=== PATIENT | female | born 1970 | race Caucasian/White ===

== ENCOUNTER → 2019-12-12 10:12 | Outpatient (BNVA) | payer MEDICARE, MEDICAID, SELFPAY | PROVIDERS: Family Provider Nurse Practitioner; PCP Nurse Practitioner; Visit Provider Psychiatry & Neurology Psychiatry | DX: F43.12 Post-traumatic stress disorder, chronic (principal); F33.42 Major depressive disorder, recurrent, in full remission; F17.219 Nicotine dependence, cigarettes, with unspecified nicotine-induced disorders | CPT/HCPCS: 99213 ==

== ENCOUNTER → 2019-12-15 16:23 | Outpatient (BNVA) | payer MEDICARE, MEDICAID, SELFPAY | PROVIDERS: Family Provider Nurse Practitioner; PCP Nurse Practitioner; Visit Provider Nurse Practitioner | DX: M76.61 Achilles tendinitis, right leg (principal); M25.571 Pain in right ankle and joints of right foot | CPT/HCPCS: 73610 ==

== ENCOUNTER → 2020-03-05 07:24 | Outpatient (BNVA) | payer MEDICARE, MEDICAID, SELFPAY | PROVIDERS: Family Provider Nurse Practitioner; PCP Nurse Practitioner; Visit Provider Psychiatry & Neurology Psychiatry | DX: F33.42 Major depressive disorder, recurrent, in full remission (principal); F17.219 Nicotine dependence, cigarettes, with unspecified nicotine-induced disorders; F43.12 Post-traumatic stress disorder, chronic | CPT/HCPCS: 99214 ==

== ENCOUNTER → 2020-03-19 07:35 | Outpatient (BNVA) | payer MEDICARE, MEDICAID, SELFPAY | PROVIDERS: Family Provider Nurse Practitioner; PCP Nurse Practitioner; Visit Provider Psychiatry & Neurology Psychiatry | DX: F33.42 Major depressive disorder, recurrent, in full remission (principal); F17.219 Nicotine dependence, cigarettes, with unspecified nicotine-induced disorders | CPT/HCPCS: 99213 ==

== ENCOUNTER → 2020-04-02 07:29 | Outpatient (BNVA) | payer MEDICARE, MEDICAID, SELFPAY | PROVIDERS: Family Provider Nurse Practitioner; PCP Nurse Practitioner; Visit Provider Psychiatry & Neurology Psychiatry | DX: F17.219 Nicotine dependence, cigarettes, with unspecified nicotine-induced disorders (principal); F33.42 Major depressive disorder, recurrent, in full remission | CPT/HCPCS: 99213 ==

== ENCOUNTER 2020-04-24 06:00 | Outpatient (RCR) | payer MEDICARE, MEDICAID, SELFPAY | END 2020-05-01 23:59 | disposition home or self-care (01) | LOC: SPT 06:00 | PROVIDERS: PCP Nurse Practitioner; Referring Provider Podiatrist Foot & Ankle Surgery; Visit Provider Podiatrist Foot & Ankle Surgery | DX: M76.61 Achilles tendinitis, right leg (principal) | CPT/HCPCS: 97035; 97110; 97140; 97162 ==

== ENCOUNTER 2020-05-02 06:00 | Outpatient (RCR) | payer MEDICARE, MEDICAID, SELFPAY | END 2020-06-01 23:59 | disposition home or self-care (01) | LOC: SPT 06:00 | PROVIDERS: PCP Nurse Practitioner; Referring Provider Podiatrist Foot & Ankle Surgery; Visit Provider Podiatrist Foot & Ankle Surgery | DX: F33.42 Major depressive disorder, recurrent, in full remission (principal); F17.210 Nicotine dependence, cigarettes, uncomplicated; M76.61 Achilles tendinitis, right leg | CPT/HCPCS: 99214 ==

== ENCOUNTER → 2020-05-30 14:10 | Outpatient (BNVA) | payer MEDICARE, MEDICAID, SELFPAY | PROVIDERS: PCP Nurse Practitioner; Visit Provider Nurse Practitioner | DX: N39.0 Urinary tract infection, site not specified (principal); I10 Essential (primary) hypertension; E55.9 Vitamin D deficiency, unspecified; K21.9 Gastro-esophageal reflux disease without esophagitis | CPT/HCPCS: 80053; 80061; 81000; 82306; 84443 ==

== ENCOUNTER → 2020-07-02 11:27 | Outpatient (BNVA) | payer MEDICARE, MEDICAID, SELFPAY | PROVIDERS: PCP Nurse Practitioner; Visit Provider Psychiatry & Neurology Psychiatry | DX: F33.42 Major depressive disorder, recurrent, in full remission (principal); F17.219 Nicotine dependence, cigarettes, with unspecified nicotine-induced disorders | CPT/HCPCS: 99212 ==

== ENCOUNTER → 2020-08-06 08:06 | Outpatient (BNVA) | payer MEDICARE, MEDICAID, SELFPAY | PROVIDERS: PCP Nurse Practitioner; Visit Provider Psychiatry & Neurology Psychiatry | DX: F33.42 Major depressive disorder, recurrent, in full remission (principal); F17.219 Nicotine dependence, cigarettes, with unspecified nicotine-induced disorders; G47.00 Insomnia, unspecified; F41.1 Generalized anxiety disorder | CPT/HCPCS: 99214 ==

== ENCOUNTER → 2020-09-03 07:29 | Outpatient (BNVA) | payer MEDICARE, MEDICAID, SELFPAY | PROVIDERS: PCP Nurse Practitioner; Visit Provider Psychiatry & Neurology Psychiatry | DX: F33.42 Major depressive disorder, recurrent, in full remission (principal); F17.219 Nicotine dependence, cigarettes, with unspecified nicotine-induced disorders | CPT/HCPCS: 99213 ==

== ENCOUNTER → 2020-10-16 08:15 | Outpatient (BNVA) | payer MEDICARE, MEDICAID, SELFPAY | PROVIDERS: PCP Nurse Practitioner; Visit Provider Psychiatry & Neurology Psychiatry | DX: F33.42 Major depressive disorder, recurrent, in full remission (principal); F17.219 Nicotine dependence, cigarettes, with unspecified nicotine-induced disorders | CPT/HCPCS: 99214 ==

== ENCOUNTER → 2020-12-06 15:59 | Outpatient (BNVA) | payer MEDICARE, MEDICAID, SELFPAY | PROVIDERS: PCP Nurse Practitioner; Visit Provider Nurse Practitioner | DX: N61.0 Mastitis without abscess (principal); J44.1 Chronic obstructive pulmonary disease with (acute) exacerbation; I10 Essential (primary) hypertension; K21.9 Gastro-esophageal reflux disease without esophagitis | CPT/HCPCS: 80053; 80061; 81000; 85025 ==

== ENCOUNTER → 2020-12-10 08:28 | Outpatient (BNVA) | payer MEDICARE, MEDICAID, SELFPAY | PROVIDERS: PCP Nurse Practitioner; Visit Provider Psychiatry & Neurology Psychiatry | DX: F33.42 Major depressive disorder, recurrent, in full remission (principal); F17.219 Nicotine dependence, cigarettes, with unspecified nicotine-induced disorders | CPT/HCPCS: 99214 ==

== ENCOUNTER → 2021-04-30 11:53 | Outpatient (BNVA) | payer MEDICARE, MEDICAID, SELFPAY | PROVIDERS: PCP Nurse Practitioner; Visit Provider Nurse Practitioner | DX: E55.9 Vitamin D deficiency, unspecified (principal); J44.1 Chronic obstructive pulmonary disease with (acute) exacerbation; I10 Essential (primary) hypertension; R13.10 Dysphagia, unspecified; E78.2 Mixed hyperlipidemia | CPT/HCPCS: 80053; 80061; 82306; 82607; 84443; 85025 ==

== ENCOUNTER 2021-05-13 08:02 | Outpatient (CLI) | payer MEDICARE, MEDICAID, SELFPAY ==
--- NOTE | 2021-05-13 08:30 | FL_ITS ---
WS: [id number] MODIFIED BARIUM SWALLOW TECHNIQUE: Modified barium swallow with speech therapy using multiple consistencies. FLUOROSCOPY TIME: 1.5 minutes. CLINICAL INFORMATION: R13.10 - Dysphagia, unspecified COMPARISON: None. FINDINGS: Multiple consistencies utilized. Penetration with nectar consistencies and thin liquids. Pooling in t he vallecula which clears with additional swallows. No keshia aspiration. No difficulties with barium tablet. FL/FL barium swallow modifd 40277 IMPRESSION: Penetration with nectar consistencies and thin liquids.
== END 2021-05-13 08:03 | disposition home or self-care (01) ==
LOC: RAD 08:08
PROVIDERS: PCP Nurse Practitioner; Visit Provider Nurse Practitioner
DX: R13.10 Dysphagia, unspecified (principal)
CPT/HCPCS: 74230; 92611

== ENCOUNTER 2021-06-14 06:00 | Outpatient (RCR) | payer MEDICARE, MEDICAID, SELFPAY | END 2021-07-02 23:59 | disposition home or self-care (01) | LOC: SST 06:00 | PROVIDERS: PCP Nurse Practitioner; Referring Provider Nurse Practitioner; Visit Provider Nurse Practitioner | DX: R13.10 Dysphagia, unspecified (principal) | CPT/HCPCS: 92526; 92610 ==

== ENCOUNTER → 2021-06-17 07:17 | Outpatient (BNVA) | payer MEDICARE, MEDICAID, SELFPAY | PROVIDERS: PCP Nurse Practitioner; Visit Provider Psychiatry & Neurology Psychiatry | DX: F33.42 Major depressive disorder, recurrent, in full remission (principal); F17.219 Nicotine dependence, cigarettes, with unspecified nicotine-induced disorders; F41.0 Panic disorder [episodic paroxysmal anxiety] | CPT/HCPCS: 99214 ==

== ENCOUNTER → 2021-07-01 10:13 | Outpatient (BNVA) | payer MEDICARE, MEDICAID, SELFPAY | PROVIDERS: PCP Nurse Practitioner; Visit Provider Nurse Practitioner | DX: I10 Essential (primary) hypertension (principal); E78.2 Mixed hyperlipidemia; J44.1 Chronic obstructive pulmonary disease with (acute) exacerbation; E55.9 Vitamin D deficiency, unspecified | CPT/HCPCS: 80053; 80061; 81000; 82306; 82607; 84443; 85025; 85651; 86140 ==

== ENCOUNTER → 2021-07-15 07:18 | Outpatient (BNVA) | payer MEDICARE, MEDICAID, SELFPAY | PROVIDERS: PCP Nurse Practitioner; Visit Provider Psychiatry & Neurology Psychiatry | DX: F33.42 Major depressive disorder, recurrent, in full remission (principal); F41.0 Panic disorder [episodic paroxysmal anxiety]; F17.219 Nicotine dependence, cigarettes, with unspecified nicotine-induced disorders | CPT/HCPCS: 99214 ==

== ENCOUNTER → 2023-07-01 10:38 | Outpatient (BNVA) | payer MEDICARE, MEDICAID, SELFPAY | PROVIDERS: PCP Nurse Practitioner; Visit Provider Nurse Practitioner | DX: E55.9 Vitamin D deficiency, unspecified (principal); E78.2 Mixed hyperlipidemia; I10 Essential (primary) hypertension | CPT/HCPCS: 80053; 80061; 82306; 82607; 84443; 85025 ==

== ENCOUNTER 2023-07-17 10:52 | Outpatient (CLI) | payer MEDICARE, MEDICAID, SELFPAY ==
--- NOTE | 2023-07-17 11:06 | XR_ITS ---
WS: [id number] Exam: XR chest 2V* [id number] Date/Time of Exam: 07/17/2023 11:08 AM Reason For Exam: J44.1 - Chronic obstructive pulmonary disease with (acute... Comparison 12/13/2018. Chronic interstitial change with honeycombing noted throughout both lungs. No consolidated infiltrate s. Cardiomediastinal silhouette is unremarkable. No pleural effusions. Bony structures are intact. IMPRESSION: 1. Chronic interstitial change with honeycombing. 2. No acute cardiopulmonary finding.
--- NOTE | 2023-07-17 11:45 | USCV_ITS ---
Zoila Christine Age: 53 Gender: F : 1970 Exam Date: 07/17/2023 11:25 Ordering Phys: Chuck Tsang Technologist: CT Exam Location: [facility] [place]_ Indication: 4th toe removed Risk Factors: Previous Vascular Surgery: RIGHT LEFT BP: 128.0 / 75.00 BP: / 0 Waveform Velocity (cm/s) Velocity (cm/s) Waveform Monophasic 67.2 Iliac Prox Monophasic 48.7 Iliac Mid Monophasic 37.1 Iliac Distal Monophasic 34.3 ENERGY ECONOMIST Monophasic 49.7 SFA Prox Monophasic 43.8 SFA Mid Monophasic 29.8 SFA Dist Monophasic 28.6 POP Monophasic 21.2 MEDICAL OFFICE SUPERVISOR Monophasic 16.6 DPA 0.7 ELAINE FINDINGS Monophasic and continuous Doppler waveforms in the arteries on the right lower extremity. Low amplitude waveforms. Resting ELAINE 0.7 CONCLUSIONS 1. Abnormal resting ELAINE of 0.7. 2. Abnormal Doppler waveforms The above features may suggest inflow disease with possible collateral filling. Consider abdominal aortic CTA with runoff to better evaluate the inflow vessels. Dr Dano Pires MD [facility] (Electronically Signed) Final Date: 17 July 2023 20:56 S
== END 2023-07-17 10:53 | disposition home or self-care (01) ==
PROVIDERS: PCP Nurse Practitioner; Visit Provider Nurse Practitioner
DX: J44.1 Chronic obstructive pulmonary disease with (acute) exacerbation (principal); Z89.421 Acquired absence of other right toe(s)
CPT/HCPCS: 71046; 93926

== ENCOUNTER 2023-08-07 08:51 | Outpatient (CLI) | payer MEDICARE, MEDICAID, SELFPAY ==
--- NOTE | 2023-08-07 09:00 | CTR_ITS ---
PROCEDURE INFORMATION: Exam: CTA Abdominal Aorta and Bilateral Lower Extremities (Run-off) With Contrast Exam date and time: 08/07/2023 9:20 AM Age: 53 years old Clinical indication: Condition or disease; Other: Acute embolism and thrombosis; Prior surgery; Surgery date: 6+ months; Surgery type: Stents, , hyst, 4th digit on RT foot; Additional info: I82.419 - acute embolism and thrombosis of unspecified fe. . . TECHNIQUE: Imaging protocol: Computed tomographic angiography of the of the abdominal aorta, pelvis and bilateral lower extremities with contrast. 3D rendering (Not supervised by radiologist): MIP and/or 3D reconstructed images were created by the technologist. Radiation optimization: All CT scans at this facility use at least one of these dose optimization techniques: automated exposure control; mA and/or kV adjustment per patient size (includes targeted exams where dose is matched to clinical indication); or iterative reconstruction. Contrast material: OMNI 350; Contrast volume: 150 ml; Contrast route: INTRAVENOUS (IV); REPORTING DATA: Count of CT and Cardiac NM exams in prior 12 months: This patient has received 0 known CTs and 0 known cardiac nuclear medicine studies in the 12 months prior to the current study. COMPARISON: CR XR abdomen 1V* [id number] 02/11/2017 9:07 AM RADIATION DOSE METRICS: Total DLP (mGy-cm): 1262.22 FINDINGS: Aorta: No abdominal aortic aneurysm. There are [id number] atherosclerotic changes of the abdominal aorta. Celiac trunk and mesenteric arteries: There is a 7 mm long segment of nonvisualized opacification of the origin of the celiac artery. This is best seen on series 5, image 108. Distal to this, there is good opacification of the distal celiac artery and branches. There is a short segment of high-grade narrowing origin of the SMA with the lumen narrowed at least 50% series 5, image 124. Renal arteries: No occlusion or significant stenosis. Right iliac arteries: There is a stent in the distal right common iliac artery and proximal half of the right external iliac artery. There is high-grade narrowing of the distal right common iliac artery within the stent measuring about 50% and severe narrowing/string sign of almost imperceptible contrast at the origin of the right internal iliac artery. The right external iliac artery including the portion within the stent is thrombosed. Right femoral/popliteal arteries: There is reconstitution of the right femoral artery from collateral vessels in the right groin. Right superficial femoral artery is widely patent although mildly diminished in caliber. Right infrapopliteal arteries: Proximal half of the right tibialis anterior and peroneal arteries are atretic with distal diminished opacification/decreased flow but no complete thrombosis. Left iliac arteries: No occlusion or significant stenosis. Left femoral/popliteal arteries: No occlusion or significant stenosis. Left infrapopliteal arteries: No occlusion or significant stenosis. Lungs: There are moderate to severe emphysematous changes. There is diffuse interstitial and ground-glass opacity in the lungs at least partially due to atelectasis however mild CHF may be present. There is no lobar consolidation. Liver: There is a diffuse decrease in hepatic parenchymal density, consistent with fatty infiltration. Diaphragm: A small hiatal hernia is present. Gallbladder and bile ducts: Unremarkable. No calcified stones. No ductal dilation. Pancreas: The pancreas is normal. Spleen: The spleen is normal. Adrenal glands: There is multilobulated benign adenomatous enlargement of the adrenal glands. Kidneys and ureters: There is no evidence of hydronephrosis. There is no evidence of renal calcifications. There is a 2.5 cm lower pole simple cyst in the left kidney. No follow-up is necessary. Stomach and bowel: There is no evidence of intestinal perforation or obstruction. The wall of the ascending and transverse colon is thickened but collapsed. This appearance may reflect lack of distention however mild colitis cannot be excluded. Appendix: A normal appendix is identified. Urinary bladder: The bladder is normal. Reproductive: There has been a hysterectomy. Intraperitoneal space: Unremarkable. No free air. No significant fluid collection. Lymph nodes: No lymphadenopathy. Bones/joints: There are small bilateral Mendoza's cyst. No acute bony abnormality. Postoperative changes partial right 4th ray amputation right foot. Soft tissues: The right tibialis posterior artery is widely patent with good runoff to the foot. There is a fat-containing umbilical hernia. There is laxity of the pelvic floor. CT/CT angio abd aorta runof [id number] IMPRESSION: 1. There is a 7 mm long segment of nonvisualized opacification/occlusion of the origin of the celiac artery. This is best seen on series 5, image 108. Distal to this, there is good opacification of the distal celiac artery and branches. 2. There is a short segment of high-grade narrowing origin of the SMA with the lumen narrowed at least 50% series 5, image 124. 3. There is high-grade narrowing of the distal right common iliac artery within the stent measuring about 50% and severe near complete narrowing/string sign of almost imperceptible contrast at the origin of the right internal iliac artery. The right external iliac artery including the portion within the stent is thrombosed. 4. The right tibialis posterior artery is widely patent with good runoff to the foot. Proximal half of the right tibialis anterior and peroneal arteries are atretic with distal diminished opacification/decreased flow but no complete thrombosis. 5. The wall of the ascending and transverse colon is thickened but collapsed. This appearance may reflect lack of distention however mild colitis cannot be excluded. 6. There is diffuse interstitial and ground-glass opacity in the lungs at least partially due to atelectasis however mild CHF may be present. Moderate to severe emphysema.
[2023-08-07] MEDS: iohexol 350 mg/mL 500 mL Btl (per mL) IV (09:10)
== END 2023-08-07 08:52 | disposition home or self-care (01) ==
LOC: RAD 08:55
PROVIDERS: PCP Nurse Practitioner; Visit Provider Nurse Practitioner
DX: I82.419 Acute embolism and thrombosis of unspecified femoral vein (principal)
CPT/HCPCS: 75635; Q9967

== ENCOUNTER → 2023-08-18 13:42 | Outpatient (BNVA) | payer MEDICARE, MEDICAID, SELFPAY | PROVIDERS: PCP Nurse Practitioner; Referring Provider Nurse Practitioner; Visit Provider Thoracic Surgery (Cardiothoracic Vascular Surgery) | DX: I74.5 Embolism and thrombosis of iliac artery (principal) | CPT/HCPCS: 99203 ==

== ENCOUNTER → 2023-10-01 10:43 | Outpatient (BNVA) | payer MEDICARE, MEDICAID, SELFPAY | PROVIDERS: PCP Nurse Practitioner; Visit Provider Orthopaedic Surgery | DX: M54.9 Dorsalgia, unspecified; M48.062 Spinal stenosis, lumbar region with neurogenic claudication | CPT/HCPCS: 72100; 99204 ==

== ENCOUNTER 2023-10-09 09:38 | Observation (INO) | payer MEDICARE, MEDICAID, SELFPAY ==
--- NOTE | 2023-10-09 07:30 | XACV_ITS ---
Ht: 157 cm Wt: 83 kg BSA: 1.95 m2 Any Known Allergies: Other Gender: Female : 1970 Exam Type: Invasive Peripheral Vascular Procedure(s): Procedure Description: Peripheral Cath Diagnostic Procedure Procedure Description: Abdominal aortic angiography Procedure Description: Lower extremities' angiography Exam Priority: Routine Abdominal Diagnostic Findings Abdominal aorta: Patent. Lower Extremity Diagnostic Findings INDICATION: 53-year-old woman with past medical history of peripheral artery disease, smoking has been referred for peripheral angiogram with possible intervention of right common/external iliac artery as she has been having lifestyle limiting claudication symptoms. She had intervention done about 1 to 2 years ago in [place] however started having leg discomfort soon after. She continues to smoke.. Right lower extremity findings: Right common iliac artery has distal stent that is occluded. Collateral blood supply is seen. Right external iliac artery is occluded. Right common femoral artery is occluded, reconstitutes just above the bifurcation. Right profunda artery is patent. Right SFA is patent. Right popliteal artery is patent. Below the knee patient has sluggish flow seen however appears to have three-vessel runoff. Left lower extremity findings: Left common iliac artery is patent. Left external iliac artery is patent. Left internal iliac artery is patent. Left common femoral artery is patent. Left profunda artery is patent. Left SFA is patent. Left popliteal artery is patent. Below the knee patient has sluggish flow however appears has three-vessel runoff to the foot. Conclusions Patient has a right lower extremity long chronic total occlusion of common iliac to common femoral artery. Occluded stent in right common iliac/external iliac artery. Reconstitution of common femoral artery right above the bifurcation of profunda artery and SFA. Given very extensive and long stenoses, will benefit from surgical intervention. Recommendations Patient to follow with Dr Clarke for surgical intervention. Hemodynamic Data Phase:Rest AO : 156.0 / 75.0 ( 99.0 ) @ 9:16:00 AM 106.0 / 71.0 ( 89.0 ) @ 9:18:00 AM 122.0 / 81.0 ( 101.0 ) @ 9:19:00 AM 123.0 / 66.0 ( 91.0 ) @ 9:24:00 AM Access Site Site: Left Femoral artery Sheath Size: 6 Fr Hemost... Method: Mynx Hemost... Success: Successful Procedure Details Findings Procedure Consent Obtained. Pre-Procedure Time Out. Identified patient by full name and date of as verbalized by the patient/guarantor. Does the consent match the physician's order: Yes. Accurate & Complete Informed Consent: Yes. Inpatient/Outpatient History & Physical on Chart: Yes. If H&P is completed, is and addenduem needed: Yes; If yes, is the addendum complete: Yes. Visualize and Verify Site with Patient/Guarantor: N/A. Relevant Radiology Images available: Yes. The risks, benefits, and alternatives of sedation and/or procedure were discussed by physician. The patient agrees to continue. Pre-op teaching completed and patient verbalized understanding. Procedure started. Physician arrived. Correct patient, site and procedure confirmed by cath team. PERRLA. Strong, equal hand physician in private practice bilaterally. Lungs clear x 5 lobes. IV Site on Arrival: 20 gauge in the left anticubital. IV Fluids: 0.9% NaCl at KVO. 0 mL infused prior to woods laborer. Pre Procedural Pulses: bilateral dorsalis pedis was Absent. Pre Procedural Pulses: bilateral posterior tibial was Doppled. Pre Procedural Pulses: bilateral radial was 2+. Oxygen started at 2liters/min via nasal canula. bilateral groins was prepped with chloroprep then draped in the usual sterile fashion. Baseline sample Acquired. HR: 93 BPM. Physician scrubbed in. Immediate Pre-Procedure Time Out. Correct Patient: Yes; Correct Procedure: Yes; Correct Site: Yes; Correct Patient Position: Yes; Correct Supplies: Yes; Dried Flammable Prep: Yes; Blood Products Available: N/A;. Lidocaine 1% infiltrated to the left groin. Arterial access obtained with micropuncture set. A 5Fr UF catheter in over wire. Abdominal aortogram performed in AP @ 10 mL/sec for a total of 30 mL. Right iliac selected and DSA performed. Catheter removed over the glide wire. Sheath injected in Left common femoral artery and runoff performed. A Left femoral angiogram was performed to determine safe placement of closure device. A Mynx was successful obtaining hemostatsis at the Left Femoral artery insertion site. Post Procedure: Pulses reassessed and unchanged. PERRLA. Strong, equal hand physician in private practice bilaterally. No VTE prophylaxis required. Medication's Wasted: Heparin = 1000 units. Total IV fluids: 42 mL. Post-op diagnosis: PAD. Complications: None. Estimated blood loss: 5mL-10mL. Responsiveness - Normal response to verbal stimuli; alert and oriented, PERRLA. Airway - Unaffected, no intervention required; spontaneous ventilation. Circulation: W/N/L, pulses unchanged. Nausea/Vomiting: No. Procedure completed. Vital chart was stopped. Patient transferred by bed to 1st floor. Procedure Medications Start: 8:54 AM Stop: 8:54 AM Medication: Versed Amount: 1 mg Route: I.V. Start: 8:54 AM Stop: 8:54 AM Medication: Fentanyl Amount: 50 mcg Route: I.V. Start: 9:11 AM Stop: 9:11 AM Medication: Versed Amount: 1 mg Route: I.V. Start: 9:12 AM Stop: 9:12 AM Medication: Fentanyl Amount: 25 mcg Route: I.V. Start: 9:17 AM Stop: 9:17 AM Medication: Fentanyl Amount: 25 mcg Route: I.V. I, the attending physician, have reviewed and verified all procedure medications. Yes, all medications given per verbal order History/Risk Factors Hypertension: Yes Dyslipidemia: Yes Peripheral Arterial Disease (PAD): Yes Obesity: No Renal Disease: No Tobacco Use: Current/Recent(w/in 1 year) Prior Interventions PCI: No CABG: No Valve Surgery: No Report Signatures Finalized by Sachin Jo MD on 10/16/2023 11:07 AM
[2023-10-09] MEDS: diphenhydrAMINE 50 mg Capsule PO (08:00)
[2023-10-09] MEDS: aspirin 325 mg Tablet PO (08:00)
[2023-10-09 08:07] LABS: Basophils # 0.1 10^3/uL (0.0-0.1); Basophils % 0.5 %; Eosinophils # 0.2 10^3/uL (0.0-0.8); Eosinophils % 1.1 %; Hematocrit 48.5 % (36-47); Lymphocytes # 3.3 10^3/uL (0.8-4.8); Lymphocytes % 22.2 %; Mean Corpuscular HGB Conc 32.6 g/dL (30-55); Mean Platelet Volume 9.8 fL (7.4-10.4); Monocytes # 0.9 10^3/uL (0.2-0.9); Monocytes % 6.1 %; Neutrophils # 10.38 10^3/uL (1.8-7.7); Neutrophils % 69.4 %; Nucleated Red Blood Cells % 0 %; Platelet Count 327 10^3/cmm (157-399); Red Blood Count 5.27 10^6/uL (3.85-5.65); Red Cell Distribution Width 14.5 % (12.1-15.1); White Blood Count 14.97 10^3/uL (3.29-11.43)
[2023-10-09 08:18] LABS: Anion Gap 17.2 (5-19); Blood Urea Nitrogen 13 mg/dL (6-20); Calcium 9.3 mg/dL (8.5-10.5); Carbon Dioxide 26 mmol/L (22-29); Chloride 100 mmol/L (98-107); Glomerular Filtration Rate 58.2 mL/min (90-130); Glucose 148 mg/dL (65-115); Osmolality Calculated 291 mOsm/kg (285-295); Potassium 4.2 mmol/L (3.5-5.1); Sodium 139 mmol/L (136-145)
[2023-10-09 08:21] VITALS: BMI 33.6
[2023-10-09 08:22] VITALS: BP 112/76; PULSE 94; RESP 18; TEMP 36.4; O2SAT 98
--- NOTE | 2023-10-09 08:46 | W.PM.OPSFHP ---
Same Day Surgery H&P Indication for Procedure/HPI DATE OF PROCEDURE: October 09, 2023 CHIEF COMPLAINT/INDICATIONFOR SURGICAL PROCEDURE: Severe claudication of right lower extremity PREOP DIAGNOSIS: Severe claudication of right lower extremity PLANNED PROCEDURE: Operation Date: 10/09/23 08:30 Proposed Procedures p perip angiogram 42305,I73.9(Not Applicable) - Sachin Jo M.D Possible percutaneous intervention 53-year-old woman with past medical history of peripheral artery disease, smoking has been referred for peripheral angiogram with possible intervention of right common/external iliac artery as she has been having lifestyle limiting claudication symptoms. She had intervention done about 1 to 2 years ago in [place] however started having leg discomfort soon after. She continues to smoke. Medications/Allergies* Allergies/Adverse Reactions Allergy/AdvReac Type Severity Reaction Status Date / Time tramadol Allergy Unknown Unknown Verified 10/09/23 08:25 Current Medications: Generic Name Dose Route Start Last Admin Trade Name Freq PRN Reason Stop Dose Admin Sodium Chloride 1,000 mls @ 50 mls/hr 10/09/23 07:30 10/09/23 08:24 Sodium Chloride 0.9% IV 10/10/23 03:29 Not Given .Q20H ONE Pertinent History/Comorbid Conditions* Medical History (Updated 10/01/23 @ 11:05 by Kirill Hernandez DO) Tachycardia Amputated great toe of right foot Vitamin D deficiency Chronic obstructive pulmonary disease with frequent exacerbations Fibromyalgia Benign essential hypertension History of head injury Cigarette nicotine dependence Depression, major, recurrent, in complete remission Post-traumatic stress disorder, chronic Surgical History (Updated 12/18/19 @ 20:24 by MARCELL Wing) History of hysterectomy Family History (Updated 11/09/19 @ 16:35 by DOT Fuller) Diabetes Chronic kidney disease (CKD) Lung disease Cancer Social History Smoking and tobacco/nicotine status: current every day tobacco/nicotine user cigarettes Packs smoked per day: 1 Years cigarettes smoked: 34 Second hand smoke exposure: Yes Alcohol intake: unknown Substance/Drug Use: unknown Adopted: No Caregiver/support person: No Lives independently: Yes Household members: significant other and family Housing: House Marital status: Single Number of children: 3 service: No Current occupational status: unemployed Pets and animals: Yes Do you think of yourself as: Straight/Heterosexual Current gender identity: Female Pertinent Exam Findings alert, oriented x 3, clear to auscultation bilaterally and regular rate & rhythm Pedal pulses are difficult to palpate bilaterally. Conscious Sedation Assessment PATIENT ASSESSED PRIOR TO SEDATION, WITH NO CHANGE NOTED: Yes AIRWAY EVAL/ANESTHESIA PLAN: normal airway, ASA III, Local Anesthesia, Risks, benefits & alternatives of sedation and/or procedure discussed and Patient agrees to continue as planned Recommendations Surgery/Procedure today (Peripheral angiogram with possible intervention.) Coding Level of Care Code Acute Code for [facility] [employer] [facility]
--- NOTE | 2023-10-09 10:27 | PC.NURSE ---
Patient arrived from seed laboratory assistant via bed at 0945. Patient has minx closure device in left femoral. Site looks clean/dry/intact. No hematoma or oozing present. Patient is aware of activity restrictions. Nurse will continue to monitor patient.
[2023-10-09 13:21] VITALS: BP 112/76; PULSE 94; RESP 18; TEMP 36.4; O2SAT 98
[2023-10-09 15:18] VITALS: BP 112/76; PULSE 94; RESP 18; TEMP 36.4; O2SAT 98
--- NOTE | 2023-10-09 15:19 | PC.NURSE ---
Discharge Note Patient discharged to home via POV accompanied by Aunt. Discharge instructions reviewed with patient and/or sales representative printing paper. Mobile pharmacy medications and/or prescriptions provided. Belongings/home medications returned.
== END 2023-10-09 15:19 | disposition home or self-care (01) ==
LOC: CSU 09:40
PROVIDERS: Admitting Provider Internal Medicine; PCP Nurse Practitioner; Visit Provider Internal Medicine
DX: I74.5 Embolism and thrombosis of iliac artery (principal); I70.92 Chronic total occlusion of artery of the extremities; Z89.411 Acquired absence of right great toe; J44.9 Chronic obstructive pulmonary disease, unspecified; M79.7 Fibromyalgia; I10 Essential (primary) hypertension; F17.210 Nicotine dependence, cigarettes, uncomplicated; E78.5 Hyperlipidemia, unspecified
CPT/HCPCS: 36415; 75625; 75716; 80048; 85025; 96365; 99152; 99153; C1760; C1769; C1887; C1894; G0378; J1644; J2250; J3010; J7030; Q0163; Q9967

== ENCOUNTER → 2023-11-12 13:47 | Outpatient (BNVA) | payer MEDICARE, MEDICAID, SELFPAY | PROVIDERS: PCP Nurse Practitioner; Referring Provider Nurse Practitioner; Visit Provider Internal Medicine Pulmonary Disease | DX: J44.1 Chronic obstructive pulmonary disease with (acute) exacerbation (principal); F17.210 Nicotine dependence, cigarettes, uncomplicated; Z12.2 Encounter for screening for malignant neoplasm of respiratory organs; Z71.6 Tobacco abuse counseling; R07.9 Chest pain, unspecified; Z99.81 Dependence on supplemental oxygen | CPT/HCPCS: 99204 ==

== ENCOUNTER 2023-11-25 08:58 | Outpatient (CLI) | payer MEDICARE, MEDICAID, SELFPAY ==
--- NOTE | 2023-11-25 09:15 | CT_ITS ---
WS: [id number] LDCT LUNG CANCER SCREENING TECHNIQUE: Noncontrast CT of the chest with coronal and sagittal reformatted images. CLINICAL INFORMATION: Cancer Screen COMPARISON: CT 2019 DLP: 100.12 mGy.cm DIvol: Mean CTDIvol: 2.50 (mGy) All CT scans at [facility] use at least one of these dose optimization techniques: automat ed exposure control; mA and/or kV adjustment per patient size (includes targeted exams where dose is matched to clinical indication); or iterative reconstruction. FINDINGS: Images are somewhat degraded due to respiratory artifact. Moderate chronic emphysematous ch anges. Interstitial thickening with subpleural reticular opacities. Suggestion of subpleural honeycom glen versus cystic change more prominent in the lower lobes. Recommend correlation for interstitial l shana disease. Slight bibasilar atelectasis. Normal caliber thoracic aorta. No mediastinal or hilar lymphadenopathy. Hilar bronchovascular thicken ing. No axillary lymphadenopathy. Normal GE junction. Splenic artery calcification. Adrenal glands ar e normal. Mild thoracic curve. IMPRESSION: Interstitial thickening with subpleural reticular opacities. Suggestion of subpleural honeycombing ve rsus cystic change more prominent in the lower lobes. Recommend correlation for interstitial lung dis ease CT/CT lung screening [id number] LUNG-RADS: 2S-Benign Appearance or Behavior with Significant Findings FOLLOW UP: 12 Month: Continue annual screening with LDCT
== END 2023-11-25 08:59 | disposition home or self-care (01) ==
LOC: RAD 08:58
PROVIDERS: PCP Nurse Practitioner; Visit Provider Internal Medicine Pulmonary Disease
DX: Z12.2 Encounter for screening for malignant neoplasm of respiratory organs (principal); F17.210 Nicotine dependence, cigarettes, uncomplicated; R91.8 Other nonspecific abnormal finding of lung field
CPT/HCPCS: 71271

== ENCOUNTER 2023-12-03 09:45 | Outpatient (CLI) | payer MEDICARE, MEDICAID, SELFPAY ==
[2023-12-03 10:03] VITALS: PULSE 96; RESP 18; O2SAT 92
[2023-12-03] MEDS: albuterol 2.5 mg/3 mL Neb INHALATION (10:03)
[2023-12-03 10:07] VITALS: PULSE 99
== END 2023-12-03 09:46 | disposition home or self-care (01) ==
PROVIDERS: PCP Nurse Practitioner; Visit Provider Internal Medicine Pulmonary Disease
DX: J44.1 Chronic obstructive pulmonary disease with (acute) exacerbation (principal); E55.9 Vitamin D deficiency, unspecified; R73.9 Hyperglycemia, unspecified; R00.0 Tachycardia, unspecified
CPT/HCPCS: 80053; 82306; 82607; 83036; 84443; 85025; 94060; 94618; 94726; 94729; J7613

== ENCOUNTER → 2023-12-16 09:42 | Outpatient (BNVA) | payer MEDICARE, MEDICAID, SELFPAY | PROVIDERS: PCP Nurse Practitioner; Visit Provider Nurse Practitioner | DX: R19.7 Diarrhea, unspecified (principal) | CPT/HCPCS: 81000 ==

== ENCOUNTER 2023-12-17 12:15 | Outpatient (CLI) | payer MEDICARE, MEDICAID, SELFPAY ==
--- NOTE | 2023-12-17 12:30 | CTR_ITS ---
PROCEDURE INFORMATION: Exam: CT Chest Without Contrast; Diagnostic Exam date and time: 12/17/2023 12:24 PM Age: 53 years old Clinical indication: Condition or disease; Lung condition and disease; Copd; Additional info: J44.1 - chronic obstructive pulmonary disease with (acute. . . No history of recent trauma or surgery is provided. TECHNIQUE: Imaging protocol: Diagnostic computed tomography of the chest without contrast. 234image(s) are provided. Radiation optimization: All CT scans at this facility use at least one of these dose optimization techniques: automated exposure control; mA and/or kV adjustment per patient size (includes targeted exams where dose is matched to clinical indication); or iterative reconstruction. Other technique: Axial images are available with sagittal and coronal reconstruction views. Automated dose exposure control is utilized. The DLP is 536.61. COMPARISON: 1. CT lung screening [id number] 11/25/2023 9:[address] chest wo con [id number] 03/07/2019 9:56 AM RADIATION DOSE METRICS: Total DLP (mGy-cm): 536.61 FINDINGS: Trachea: The central airways are patent. Lungs: No lobar consolidation is appreciated. There is some slightly heterogeneous overall appearance of the parenchyma albeit with some decreased density of the lower lung zones. There is subpleural reticulation indicative of interstitial fibrosis with some slight bronchiolectasis and suggestive of early honeycombing. There is some ground-glass nodularity similar for example including 2 mm right upper lobe image 16. There is some slight lung fissure thickening. There is some granulomatous appearance for example 2 mm of the right hemidiaphragm image 42. This corresponds with the previous Fleischner descriptions. Pleural spaces: No pneumothorax or pleural effusion is appreciated. Heart: No significant pericardial fluid collection is appreciated. Coronary arteries: There appear to be some coronary arterial calcifications present. Lymph nodes: There are some borderline enlarged, reactive appearing mediastinal and hilar lymph nodes present for example including retrocaval measuring around 1.8 x 1.6 cm similar as well as superior left perihilar, AP window with bandlike thickness of around 0.6 cm also similar. Vasculature: No interval thoracic aortic saccular aneurysmal dilatation is appreciated. There is some slight prominence of the central pulmonary arteries suggestive of chronic pulmonary hypertension. Adrenal glands: There is some slight adrenal hypertrophy similar. Intraperitoneal space: There is a similar otherwise interval appearance of the included intraperitoneal space, upper abdominal structures. Bones/joints: Osseous alignment is maintained. No interval displaced fracture or dislocation is appreciated. Soft tissues: There are some chronic appearing breast soft tissue calcifications. Other findings: No other significant interval changes are appreciated. CT/CT chest wo con [id number] IMPRESSION: There are chronic interstitial fibrotic appearing changes with slightly improved aeration overall in the interval. No interval lobar consolidation or cardiac decompensation is appreciated.
== END 2023-12-17 12:16 | disposition home or self-care (01) ==
LOC: RAD 12:16
PROVIDERS: PCP Nurse Practitioner; Visit Provider Internal Medicine Pulmonary Disease
DX: J44.1 Chronic obstructive pulmonary disease with (acute) exacerbation (principal); J84.10 Pulmonary fibrosis, unspecified
CPT/HCPCS: 71250

== ENCOUNTER 2023-12-21 08:08 | Outpatient (CLI) | payer MEDICARE, MEDICAID, SELFPAY ==
[2023-12-21 08:27] VITALS: BMI 34.0
--- NOTE | 2023-12-21 08:31 | ECG_ITS ---
[facility] Test Date: 2023-12-21 Pat Name: Zoila Christine Department: Room: Gender: Female Provider Relations Coordinator: : 1970 Requested By: Fidel Shawr Paula Order Number: [id number] Mami MD: Dano Pires M.D. Interpretive Statements NAME OF STUDY: LEXISCAN SESTAMIBI STRESS TEST INDICATION: Chest Pain; Shortness of Breath PROCEDURE: At the baseline, the EKG revealed normal sinus rhythm with a poor R wave progression. Some nonspecific T wave changes. The baseline heart was 72 bpm with a blood pressue of 154/90 mm of Hg Lexiscan was infused over a period of 20 seconds. A total of 0.4 milligrams of Lexiscan was infused. The stress phase was continued for a total of 5 minutes. Heart rate at the end of the stress phase was 91 bpm with a blood pressure 150/88 mm of Hg. The EKG at the peak infusion revealed no significant changes. Sestamibi was injected 20 seconds after the Lexiscan infusion. Heart rate at the end of the recovery phase was 80 bpm with a blood pressure of 140/79 mm of Hg. CONCLUSION: 1. No significant EKG changes with the LexiScan infusion 2. No LexiScan induced chest pain or cardiac arrhythmia 3. Normal blood pressure and heart rate response 4. Sestamibi/sestamibi perfusion scan pending; see separate report. Electronically Signed On 12-26-2023 14:40:06 FILLING MACHINE TENDER by Dano Pires M.D. [email or web address]
--- NOTE | 2023-12-21 08:32 | NMCV_ITS ---
NM arthur perf SPECT r/s* [id number] Zoila Christine Age: 53 Gender: F : 1970 Exam Date: 12/21/2023 09:16 Ordering Phys: Fidel Miller MD Technologist: MARICARMEN Guillory Exam Location: [facility] Indications: SOB STRESS TEST [facility] IMAGE PROTOCOL Rest/Stress 1 Radiopharmaceutical Dose (mCi) Administration Site Administered by Rest: Tc-99m 10.4 IV MARICARMEN Guillory Sestamibi Stress:Tc-99m 32.9 IV MARICARMEN Guillory Sestamibi Rest: 21-Dec-2023 60 Discovery 630 Stress: 21-Dec-2023 30 Discovery 630 SPECT RESULTS Technical Quality: Good Raw Data Analysis: Breast attenuation Image Corrections: No attenuation or motion correction applied Summed Stress Score: 4 Summed Rest Score: 6 Summed Difference Score: 1 PERFUSION FINDINGS Small area of moderately decreased tracer uptake in the apical lateral and LV apex. Subtle area of reversibility was noted in the apex with the supine imaging. However with the prone imaging, no significant reversible defects are noted FUNCTIONAL RESULTS (calculated via Gated SPECT) Stress Image LV EF (%): 72 Stress EDV (mL):78 TID: 1.32 Stress ESV (mL):22 FUNCTIONAL FINDINGS: Segmental wall motion analysis revealing no gross wall motion normalities. The transient ischemic dilatation ratio was found to be elevated to 1.32 IMPRESSIONS 1. Myocardial perfusion imaging revealing small area of decreased tracer uptake in the LV apex and apical lateral regions with an area of reversibility in the apex suggesting myocardial scarring with ischemia in the distribution of the left circumflex artery. However because of the inconsistency with the prone imaging, the reliability is questionable. 2. Normal ejection fraction 72% with 3. LV wall motion analysis revealing no gross wall motion abnormalities. 4. Normal LV volume No similar previous studies are available for comparison Dr Dano Pires MD [facility] (Electronically Signed) Final Date: 21 December 2023 21:44 S
[2023-12-21] MEDS: regadenoson 0.4 Mg/5 ml Syringe 0.400000000000000022 MG IVP (10:20)
[2023-12-21 10:36] VITALS: BP 123/84; PULSE 80
== END 2023-12-21 08:09 | disposition home or self-care (01) ==
LOC: CDL 08:08
PROVIDERS: PCP Nurse Practitioner; Visit Provider Internal Medicine Pulmonary Disease
DX: R06.02 Shortness of breath (principal); R07.9 Chest pain, unspecified; R93.1 Abnormal findings on diagnostic imaging of heart and coronary circulation
CPT/HCPCS: 36415; 78452; 93017; 96374; A9500; J2785

== ENCOUNTER → 2024-01-11 14:00 | Outpatient (BNVA) | payer MEDICARE, MEDICAID, SELFPAY | PROVIDERS: PCP Nurse Practitioner; Visit Provider Internal Medicine Pulmonary Disease | DX: J44.1 Chronic obstructive pulmonary disease with (acute) exacerbation (principal); Z12.2 Encounter for screening for malignant neoplasm of respiratory organs; Z71.6 Tobacco abuse counseling; R07.9 Chest pain, unspecified; J84.9 Interstitial pulmonary disease, unspecified | CPT/HCPCS: 85651; 86038; 86140; 86200; 86225; 86235; 86431; 99214 ==

== ENCOUNTER → 2024-02-09 14:52 | Outpatient (BNVA) | payer MEDICARE, MEDICAID, SELFPAY | PROVIDERS: PCP Nurse Practitioner; Visit Provider Internal Medicine Pulmonary Disease | DX: J44.1 Chronic obstructive pulmonary disease with (acute) exacerbation (principal); J84.9 Interstitial pulmonary disease, unspecified; M25.641 Stiffness of right hand, not elsewhere classified; M25.642 Stiffness of left hand, not elsewhere classified; Z71.6 Tobacco abuse counseling; R07.9 Chest pain, unspecified; F17.210 Nicotine dependence, cigarettes, uncomplicated | CPT/HCPCS: 36415; 86225; 86235; 99214 ==

== ENCOUNTER 2024-03-04 09:06 | Outpatient (CLI) | payer MEDICARE, MEDICAID, SELFPAY ==
--- NOTE | 2024-03-04 09:11 | USCV_ITS ---
Zoila Christine Age: 53 Gender: F : 1970 Exam Date: 03/04/2024 09:27 Ordering Phys: Fidel Miller MD Technologist: CT Exam Location: [facility] [place] Indication: SOB BP: 124 / 85 HR: 70 Rhythm: Sinus Technical Quality: Adequate MEASUREMENTS (Male / Female) Normal Values 2D ECHO LVOT Diameter 2.0 cm LV Ejection Fraction MOD 2C 56.9 % LV Ejection Fraction 2C AL 57.4 % LA Diameter 3.4 cm RA Systolic Volume 4C AL 22.0 ml RA Systolic Volume 4C MOD 19.7 ml LA Sys Volume AL 27.9 cm cubed LA Sys Volume Index AL 14.6 cm cubed/m squared Aorta at Sinotubular Diameter 2.6 cm IVC Diameter 1.4 cm M-MODE LA Ao Ratio MM 1.5 AV Cusp Separation MM 1.8 cm DOPPLER AV Peak Velocity 150.0 cm/s LVOT Peak Velocity 105.0 cm/s AV Area Cont Eq vti 2.5 cm squared AV Area Cont Eq pk 2.2 cm squared MV Peak Velocity 88.0 cm/s MV Area PHT 3.4 cm squared Mitral E to A Ratio 0.8 TR Peak Velocity 117.0 cm/s TR Peak Gradient 5.5 mmHg TV Peak E Velocity 66.0 cm/s Right Atrial Pressure 3.0 mmHg Pulmonary Artery Systolic Pressu 8.5 mmHg PV Peak Velocity 125.0 cm/s FINDINGS Left Ventricle Left ventricle is normal in size. LV systolic function is normal with EF 55 to 60%. No regional wall motion abnormalities are seen. Grade 1 diastolic dysfunction Right Ventricle Normal in size and function. Right Atrium Normal in size. Left Atrium Normal in size. Mitral Valve Structurally normal mitral valve. Trace mitral regurgitation. Aortic Valve Structurally normal aortic valve. No significant stenosis or regurgitation. Tricuspid Valve Insufficient TR jet to calculate RVSP. Pulmonic Valve Not well visualized Pericardium Normal Aorta Normal in size IVC Appears to be normal CONCLUSIONS LV systolic function is normal with EF of 55 to 60%. Grade 1 diastolic dysfunction. Trace mitral regurgitation. Sachin Jo MD (Electronically Signed) Final Date: 13 Mar 2024 13:52 S
== END 2024-03-04 09:07 | disposition home or self-care (01) ==
LOC: RAD 09:06
PROVIDERS: PCP Nurse Practitioner; Visit Provider Internal Medicine Pulmonary Disease
DX: R06.02 Shortness of breath (principal); I34.0 Nonrheumatic mitral (valve) insufficiency; I74.5 Embolism and thrombosis of iliac artery
CPT/HCPCS: 93306; 99213

== ENCOUNTER → 2024-04-07 11:08 | Outpatient (BNVA) | payer MEDICARE, MEDICAID, SELFPAY | PROVIDERS: PCP Nurse Practitioner; Visit Provider Nurse Practitioner | DX: J44.1 Chronic obstructive pulmonary disease with (acute) exacerbation (principal); E78.2 Mixed hyperlipidemia; F33.42 Major depressive disorder, recurrent, in full remission; F41.0 Panic disorder [episodic paroxysmal anxiety]; I82.419 Acute embolism and thrombosis of unspecified femoral vein; R00.0 Tachycardia, unspecified; G43.909 Migraine, unspecified, not intractable, without status migrainosus; I10 Essential (primary) hypertension; E11.9 Type 2 diabetes mellitus without complications; E55.9 Vitamin D deficiency, unspecified | CPT/HCPCS: 80053; 80061; 82306; 82607; 83036 ==

== ENCOUNTER → 2024-06-23 10:56 | Outpatient (BNVA) | payer MEDICARE, MEDICAID, SELFPAY | PROVIDERS: PCP Family Medicine; Visit Provider Nurse Practitioner | DX: I10 Essential (primary) hypertension (principal); E55.9 Vitamin D deficiency, unspecified; R73.9 Hyperglycemia, unspecified | CPT/HCPCS: 80053; 80061; 82607; 83036 ==

== ENCOUNTER → 2025-08-31 14:19 | Outpatient (BNVA) | payer MEDICARE, MEDICAID, SELFPAY | PROVIDERS: PCP Family Medicine; Visit Provider Clinical Nurse Specialist Adult Health | DX: M79.672 Pain in left foot (principal); R22.42 Localized swelling, mass and lump, left lower limb; M25.572 Pain in left ankle and joints of left foot | CPT/HCPCS: 73610; 73630 ==